=== PATIENT | male | born 1970 | race Caucasian/White ===

== ENCOUNTER 2020-05-01 21:19 | Emergency (ER) | payer MEDICARE, MEDICAID ==
[~2020-05-01] VITALS: Ht 170.2 cm; Wt 68.2 kg
[2020-05-01 23:08] LABS: BILIRUBIN,URINE NEGATIVE (NEG); CLARITY,URINE CLEAR; COLOR,URINE YELLOW; NITRITE,URINE NEGATIVE (NEG); PROTEIN,URINE NEGATIVE (NEG-TRACE)
[2020-05-01 23:13] LABS: BACTERIA,URINE 0 /HPF (0-FEW); RBC,URINE OCC /HPF (0-2)
[2020-05-01 23:15] LABS: AMPHETAMINE/METHAMPHETAMINE NEG (NEG); BARBITURATES NEG (NEG); BENZODIAZEPINES NEG (NEG); CANNABINOIDS NEG (NEG); COCAINE NEG (NEG); METHADONE NEG (NEG); OPIATES NEG (NEG); PHENCYCLIDINE NEG (NEG)
[2020-05-02] MEDS ORDERED: TRAM-48 PO (02:13)
[2020-05-02] MEDS ORDERED: SULF1TAB24 PO (02:13)
--- NOTE | 2020-05-02 02:13 | PHYS DOC ---
Past Medical History Past Medical History: Arthritis, Depression, Other Additional Past Medical Histor: PTSD, GINETTE Past Surgical History: Other Additional Past Surgical Histo: FINGER Smoking Status: Never Smoker Alcohol Use: Heavy General Adult EDM: Chief Complaint: MULTIPLE COMPLAINTS HPI: HPI: Patient is a 49 year old male brought in by ems for evaluation due to the chief complaint of feet pain. Prior to arrival patient was at [facility]-- we was eating and drinking unpaid for food in the store. 911 was called and patient was eventually transported here to [facility] for evaluation. Patient complained of bilateral feet pain. Patients feet were filthy. Some areas of redness on the toes. No open wound or ulcers. Review of Systems: Review of Systems: Constitutional: Denies fever or chills. [] Eyes: Denies change in visual acuity. [] HENT: Denies nasal congestion or sore throat. [] Respiratory: Denies cough or shortness of breath. [] Cardiovascular: Denies chest pain or edema. [] GI: Denies abdominal pain, nausea, vomiting, bloody stools or diarrhea. [] : Denies dysuria. [] Musculoskeletal: Denies back pain or joint pain. [positive foot pain] Integument: Patients feet were filthy. Some areas of redness on the toes. No open wound or ulcers. Neurologic: Denies headache, focal weakness or sensory changes. [] Endocrine: Denies polyuria or polydipsia. [] Lymphatic: Denies swollen glands. [] Psychiatric: Denies depression or anxiety. [] Heart Score: Risk Factors: Risk Factors: DM, Current or recent (<one month) smoker, HTN, HLP, family history of CAD, obesity. Risk Scores: Score 0 - 3: 2.5% MACE over next 6 weeks - Discharge Home Score 4 - 6: 20.3% MACE over next 6 weeks - Admit for Clinical Observation Score 7 - 10: 72.7% MACE over next 6 weeks - Early Invasive Strategies Allergies: Allergies: Allergies Coded Allergies Type Severity Reaction Last Updated Verified Penicillins Allergy Mild RASH 05/02/20 Yes Physical Exam: PE: Constitutional: Well developed, well nourished, no acute distress, non-toxic appearance. [] HENT: Normocephalic, atraumatic, bilateral external ears normal, oropharynx moist, no oral exudates, nose normal. [] Eyes: PERRLA, EOMI, conjunctiva normal, no discharge. [] Neck: Normal range of motion, no tenderness, supple, no stridor. [] Cardiovascular:Heart rate regular rhythm, no murmur [] Lungs & Thorax: Bilateral breath sounds clear to auscultation [] Abdomen: Bowel sounds normal, soft, no tenderness, no masses, no pulsatile masses. [] Skin: Warm, dry, no erythema, no rash. [ Patients feet were filthy. Some areas of redness on the toes. No open wound or ulcers. ] Back: No tenderness, no CVA tenderness. [] Extremities: No tenderness, no cyanosis, no clubbing, ROM intact, no edema. [] Neurologic: Alert and oriented X 3, normal motor function, normal sensory function, no focal deficits noted. [] Psychologic: Affect normal, judgement normal, mood normal. [] Current Patient Data: Labs: Laboratory Tests Test 05/01/20 23:00 Urine Collection Type Unknown Urine Color Yellow Urine Clarity Clear Urine pH 7.0 (<5.0-8.0) Urine Specific [place] >=1.030 (1.000-1.030) Urine Protein Negative mg/dL (NEG-TRACE) Urine Glucose (UA) Negative mg/dL (NEG) Urine Ketones (Stick) Trace mg/dL (NEG) Urine Blood Negative (NEG) Urine Nitrite Negative (NEG) Urine Bilirubin Negative (NEG) Urine Urobilinogen Dipstick 1.0 mg/dL (0.2 mg/dL) Urine Leukocyte Esterase Negative (NEG) Urine RBC Occ /HPF (0-2) Urine WBC 1-4 /HPF (0-4) Urine Squamous Epithelial Cells Occ /LPF Urine Bacteria 0 /HPF (0-FEW) Urine Mucus Mod /LPF Urine Opiates Screen Neg (NEG) Urine Methadone Screen Neg (NEG) Urine Barbiturates Neg (NEG) Urine Phencyclidine Screen Neg (NEG) Urine Amphetamine/Methamphetamine Neg (NEG) Urine Benzodiazepines Screen Neg (NEG) Urine Cocaine Screen Neg (NEG) Urine Cannabinoids Screen Neg (NEG) Urine Ethyl Alcohol Neg (NEG) Vital Signs: Vital Signs Date Time Temp Pulse Resp B/P (MAP) Pulse Ox O2 Delivery O2 Flow Rate FiO2 05/02/20 01:05 98.3 72 18 129/87 (101) 99 Room Air 98.3 EKG: EKG: [] Radiology/Procedures: Radiology/Procedures: [] Course & Med Decision Making: Course & Med Decision Making Pertinent Labs and Imaging studies reviewed. (See chart for details) [] Mahsa Disclaimer: Mahsa Disclaimer: This electronic medical record was generated, in whole or in part, using a voice recognition dictation system. Departure Departure Impression: Primary Impression: Foot pain, bilateral Additional Impression: Cellulitis Disposition: 01 HOME SELF CARE/HOMELESS Condition: STABLE Referrals: UNKNOWN PCP NAME (PCP) Patient Instructions: Cellulitis Scripts Tramadol Hcl (ULTRAM) 50 Mg Tablet 1 TAB PO PRN Q6HRS PRN for pain MDD 4 Tablet(s) for 7 Days, #28 TAB 0 Refills Prov: ORIANA DIAL DO 05/02/20 Sulfamethoxazole/Trimethoprim (BACTRIM DS TABLET) 1 Each Tablet 1 TAB PO BID for 10 Days, #20 TAB 0 Refills Prov: ORIANA DIAL DO 05/02/20 ORIANA DIAL DO May 02, 2020 02:13
[2020-05-02 02:15] VITALS: BP 101/62
== END 2020-05-02 02:15 | disposition home or self-care (01) ==
LOC: ER 21:19
DX: L03.116 Cellulitis of left lower limb (principal); L03.115 Cellulitis of right lower limb; F43.10 Post-traumatic stress disorder, unspecified; F10.20 Alcohol dependence, uncomplicated; Y90.9 Presence of alcohol in blood, level not specified; Z88.0 Allergy status to penicillin
CPT/HCPCS: 80307; 81001; 99283

== ENCOUNTER 2020-05-26 21:14 | Emergency (ER) | payer MEDICARE, MEDICAID ==
[~2020-05-26] VITALS: Ht 170.2 cm; Wt 68.1 kg
[~2020-05-26 21:14] MED LIST: SULF1TAB24 PO; TRAM-48 PO
[2020-05-26 22:00] VITALS: BP 130/88
[2020-05-27] MEDS ORDERED: IBUP400T99 PO (00:58)
--- NOTE | 2020-05-27 01:00 | PHYS DOC ---
Past Medical History Past Medical History: Arthritis, Depression, Schizophrenia, Other Additional Past Medical Histor: PTSD, GINETTE Past Surgical History: Other Additional Past Surgical Histo: FINGER, PLASTIC SURGERY Smoking Status: Never Smoker Alcohol Use: Heavy General Adult EDM: Chief Complaint: COUGH HPI: HPI: 49-year-old male past medical history schizoaffective disorder, presents the ED brought in by EMS as patient was found at a [facility], complains of runny nose and dry cough for the past few days. Pt with multiple medical complaints. Apparently police told EMS patient was drug-seeking. Patient states he is out of his medications, will not specify which medications he is wanting to be refilled. Patient is also requesting to be assessed for lung cancer and to have his blood drawn. Also states he feels weak and has right ankle pain, no associated trauma. Unsure if he has been tested for Covid, declines test in ED. Review of Systems: Review of Systems: Constitutional: Denies fever or chills. [] Eyes: Denies change in visual acuity. [] HENT: Denies nasal congestion or sore throat. [] Respiratory: Denies hemoptysis or shortness of breath. [] Cardiovascular: Denies chest pain or edema or syncope GI: Denies abdominal pain, nausea, vomiting, bloody stools or diarrhea. [] : Denies dysuria. [] Musculoskeletal: Denies back pain or joint swelling Integument: Denies rash. [] Neurologic: Denies headache, focal weakness or sensory changes. [] Endocrine: Denies polyuria or polydipsia. [] Lymphatic: Denies swollen glands. [] Psychiatric: Denies depression or anxiety, denies suicidal or homicidal ideati ons Heart Score: Risk Factors: Risk Factors: DM, Current or recent (<one month) smoker, HTN, HLP, family history of CAD, obesity. Risk Scores: Score 0 - 3: 2.5% MACE over next 6 weeks - Discharge Home Score 4 - 6: 20.3% MACE over next 6 weeks - Admit for Clinical Observation Score 7 - 10: 72.7% MACE over next 6 weeks - Early Invasive Strategies Allergies: Allergies: Allergies Coded Allergies Type Severity Reaction Last Updated Verified Penicillins Allergy Mild RASH 05/02/20 Yes Physical Exam: PE: Constitutional: Disheveled unkempt appearance HENT: Normocephalic, atraumatic, Eyes: EOMI, conjunctiva normal, no discharge. [] Neck: Normal range of motion, supple, Cardiovascular: S1 and S2 present, no active cough Lungs & Thorax: Speaking in full sentences, bilateral equal chest rise Skin: Warm, dry, no erythema, no rash. [] Extremities: No tenderness, no edema, normal right ankle Neurologic: Alert and oriented X 3, normal motor function, normal sensory function, no focal deficits noted. [] Psychologic: disorganized but directable, denies any SI or HI, has no apparent psychosis Current Patient Data: Vital Signs: Vital Signs Date Time Temp Pulse Resp B/P (MAP) Pulse Ox O2 Delivery O2 Flow Rate FiO2 05/26/20 22:00 98.3 106 17 130/88 (102) 99 Room Air 98.3 EKG: EKG: [] Radiology/Procedures: Radiology/Procedures: IMAGING REPORT Signed PATIENT: CHRISTA HERNANDEZ ACCOUNT: [id number] : 1970 LOCATION: ER AGE: 49 SEX: M EXAM STATUS: DEP ER ORD. PHYSICIAN: AMISH WINSLOW DO REASON: coiugh PROCEDURE: CHEST PA & LATERAL Study: CR CHEST PA LATERAL Indication: Cough. Comparison: None. Findings: The cardiomediastinal silhouette and yennifer are within normal limits. Nodular focus at the left lower lung favored a nipple shadow. No correlate is seen on the lateral view to suggest otherwise. Asymmetric haziness at the mid aspect of the right lung favored summation artifact. No confluent infiltrate, pleural effusion or pneumothorax. Impression: No acute radiographic abnormality of the chest. Electronically signed by: MERCED OLIVERA MD (05/27/2020 5:25 AM) [id number] DICTATED and SIGNED BY: MERCED OLIVERA MD DATE: 05/27/20 0525 Course & Med Decision Making: Course & Med Decision Making Pertinent Labs and Imaging studies reviewed. (See chart for details) Homeless male with multiple complaints in ED, low suspicion for any life or limb threatening emergencies. Patient has medical decision-making capacity and has no complaints such that patient is a danger to himself or others. Strict ED return precautions were given for chest pain, increased work of breathing, shortness of breath, suicidal homicidal ideations. Encouraged urgent outpatient follow-up with PMD and psychiatry. Life-threatening processes were considered but are low suspicion at this time, given history and physical exam. Pt was educated on all prescription medications and adverse effects. All patient's questions were answered and pt was stable at time of discharge. Life/limb-threatening differential includes but is not limited to, foreign body, infection/sepsis, congestive heart failure or pulmonary edema, lung cancer intrathoracic mass, bronchoconstriction, asthma/COPD/lung disease exacerbation, pneumothorax or hemothorax, pulmonary emboli, autoimmune/neurologic disease or toxidrome. I spoken with the patient and her caregivers. I explained the patient's condition, diagnoses and treatment plan based on the information available to me at this time. I have answered the patient and her caregiver's questions and addressed any concerns. The patient and her caregivers have a good understanding of patient's diagnosis, condition and treatment plan as can be expected at this point. Vital signs have been stable. Patient's condition is stable and appropriate for discharge from the emergency department. Patient will pursue further outpatient evaluation with primary care physician or other designated or consulting physician as outlined in the discharge instructions. The patient and/or caregivers are agreeable to this plan of care and follow-up instructions have been explained in detail. The patient and/or caregivers have received these instructions in written form and have expressed an understanding of the discharge instructions. The patient and/or caregivers are aware that any significant change of condition or worsening of symptoms should prompt immediate return to this or the closest emergency department or call to 911. Mahsa Disclaimer: Mahsa Disclaimer: This electronic medical record was generated, in whole or in part, using a voice recognition dictation system. Departure Departure Impression: Primary Impression: Upper respiratory infection Additional Impression: Schizoaffective disorder Disposition: 01 DC HOME SELF CARE/HOMELESS Condition: STABLE Referrals: NO PCP (PCP) FOLLOW UP WITH FAMILY MEDICINE: Family Medicine Address: [address] [facility] [place] [address] Patient Instructions: Cough, Adult Additional Instructions: FOLLOW UP WITH PSYCHIATRY: Dr. Paul Pickens Psychiatry Specialist [address] [place], [place] [id number] EMERGENCY DEPARTMENT GENERAL DISCHARGE INSTRUCTIONS Thank you for coming to [facility] Emergency Department (ED) today and trusting us with you care. We trust that you had a positive experience in our Emergency Department. If you wish to speak to the department management, you may call the Director at [phone]. YOUR FOLLOW UP INSTRUCTIONS ARE FOLLOWS: 1. Do you have a private Doctor? If you do not have a private doctor, please ask for a resource list of physicians or clinics that may be able to assist you with follow up care. 2. The Emergency Physicain has interpreted your x-rays. The X-Ray specialist will also review them. If there is a change in the findings, you will be notified in 48 hours when at all possible. 3. A lab test or culture has been done, your results will be reviewed and you will be notified if you need a change in treatment. ADDITIONAL INSTRUCTIONS AND INFORMATION: 1. Your care today has been supervised by a physician who is specially trained in emergency care. Many problems require more than one evaluation for a complete diagnosis and treatment. We recommend that you schedule your follow up appointment as recommended to ensure complete treatment of you illness or injury. If you are unable to obtain follow up care and continue to have a problem, or if your condition worsens, we recommend that you return to the ED. 2. We are not able to safely determine your condition over the phone nor are we able to give sound medical advice over the phone. For these safety reasons, if you call for medical advice we will ask you to come to the ED for further evaluation. 3. If you have any questions regarding these discharge instructions please call the ED at [phone]. SAFETY INFORMATION: In the interest of safety, wellness, and injury prevention; we encourage you to wear your sealbelt, if you smoke; quite smoking, and we encourage family to use a protective helmet for bicycling and other sporting events that present an increased risk for head injury. IF YOUR SYMPTOMS WORSEN OR NEW SYMPTOMS DEVELOP, OR YOU HAVE CONCERNS ABOUT YOUR CONDITION; OR IF YOUR CONDITION WORSENS WHILE YOU ARE WAITING FOR YOUR FOLLOW UP APPOINTMENT; EITHER CONTACT YOUR PRIMARY CARE DOCTOR, THE PHYSICIAN WHOSE NAME AND NUMBER YOU WERE GIVEN, OR RETURN TO THE ED IMMEDIATELY. AMISH PRADO DO May 27, 2020 01:00
--- NOTE | 2020-05-27 05:28 | RAD ---
Study: CR CHEST PA LATERAL Indication: Cough. Comparison: None. Findings: The cardiomediastinal silhouette and yennifer are within normal limits. Nodular focus at the left lower lung favored a nipple shadow. No correlate is seen on the lateral view to suggest otherwise. Asymmetric haziness at the mid aspect of the right lung favored summation artifact. No confluent infiltrate, pleural effusion or pneumothorax. Impression: No acute radiographic abnormality of the chest. Electronically signed by: MERCED OLIVERA MD (05/27/2020 5:25 AM) [id number]
== END 2020-05-27 01:05 | disposition home or self-care (01) ==
LOC: ER 21:14
DX: J06.9 Acute upper respiratory infection, unspecified (principal); F25.9 Schizoaffective disorder, unspecified; R05 Cough; R09.89 Other specified symptoms and signs involving the circulatory and respiratory systems; M25.571 Pain in right ankle and joints of right foot; M19.90 Unspecified osteoarthritis, unspecified site; F32.9 Major depressive disorder, single episode, unspecified; F10.10 Alcohol abuse, uncomplicated; Z98.890 Other specified postprocedural states
CPT/HCPCS: 71046; 99283